=== PATIENT | male | born 1975 | race Caucasian/White ===

== ENCOUNTER 2018-11-09 09:56 | Day surgery (SDC) | payer OTHER ==
[~2018-11-09] VITALS: Ht 175.3 cm; Wt 105.8 kg
--- NOTE | 2018-11-09 10:27 | NUR ---
11/09/18 1027 Karen Murphy CALL LIGHT WITHIN REACH
[2018-11-09] MEDS ORDERED: LISI20 PO (10:33)
--- NOTE | 2018-11-09 11:42 | NUR ---
11/09/18 1142 Kristyn Alexandra PT STRADDLING STOOL WITH ARMS FORWARD ON END OF GURNEY, MONITORS IN PLACE.
== END 2018-11-09 12:20 | disposition home or self-care (01) ==
LOC: ORSCSDS 09:56
PROVIDERS: Anesthesiology
PROC: 3E0R33Z Introduction of Anti-inflammatory into Spinal Canal, Percutaneous Approach (ICD-10-PCS; principal; 2018-11-09 11:15)
DX: M50.122 Cervical disc disorder at C5-C6 level with radiculopathy (principal); I25.2 Old myocardial infarction; I10 Essential (primary) hypertension; Z79.899 Other long term (current) drug therapy
CPT/HCPCS: J1040; J2250; J3010

== ENCOUNTER 2019-06-01 09:29 | Day surgery (SDC) | payer OTHER ==
[~2019-06-01] VITALS: Ht 205.7 cm; Wt 109.7 kg
[~2019-06-01 09:29] MED LIST: LISI20 PO
== END 2019-06-01 13:00 | disposition home or self-care (01) ==
LOC: ORSCSDS 09:29
PROVIDERS: Orthopaedic Surgery
PROC: 0SQC4ZZ Repair Right Knee Joint, Percutaneous Endoscopic Approach (ICD-10-PCS; principal; 2019-06-01 10:55)
DX: S83.231A Complex tear of medial meniscus, current injury, right knee, initial encounter (principal); M94.261 Chondromalacia, right knee; M25.561 Pain in right knee; I10 Essential (primary) hypertension; G47.33 Obstructive sleep apnea (adult) (pediatric); Z79.899 Other long term (current) drug therapy; E66.01 Morbid (severe) obesity due to excess calories; Z68.35 Body mass index [BMI] 35.0-35.9, adult
CPT/HCPCS: C1713; J0171; J0690; J1100; J1885; J2250; J2405; J2704; J3010; J7120